=== PATIENT | male | born 1960 | race Hispanic/Latino ===

== ENCOUNTER 2016-11-23 10:35 | Emergency (ER) | payer BC ==
[2016-11-23 10:49] VITALS: BP 122/80
--- OUTSIDE RECORDS SUMMARY | 2016-11-23 11:05 | XMS REPORT | Summary of Care ---
:1960 Author Organization [facility] Address [address] [place] [address] [address] [place] [address] Care Team Providers Name Role Phone Marifer Blancohy [place] Primary Care Physician Encounter Date(s): 09/25/16 - 09/25/16 [facility] [address] [place] [address] [address] [place] [address]- Discharge Diagnosis: Bloating Discharge Diagnosis: Left lower quadrant abdominal tenderness Discharge Diagnosis: Flatulence Discharge Diagnosis: Heartburn Discharge Disposition: 01 Discharged to Home or Self Care Attending Physician: Lior Coronel DO Referring Physician: Lior Coronel DO Vital Signs Most recent to oldest [Reference Range]: 1 Peripheral Pulse Rate [60-100 bpm] 84 bpm (09/25/16 3:39 PM) Blood Pressure [90-130/60-90 mmHg] 126/84mmHg (09/25/16 3:39 PM) Mean Arterial Pressure, Cuff 98 mmHg (09/25/16 3:39 PM) Most recent to oldest [Reference Range]: 1 Height/Length Measured 167 cm (09/25/16 3:39 PM) Weight Dosing 85.0 kg (09/25/16 3:39 PM) Weight Measured 85.0 kg (09/25/16 3:39 PM) BSA Measured 1.94 m2 (09/25/16 3:39 PM) Body Mass Index Measured 30.48 kg/m2 (09/25/16 3:39 PM) Problem List No data available for this section Allergies, Adverse Reactions, Alerts Substance Reaction Severity Status Cipro itching Active penicillin [id number] 19:27:42<$> Active Medications albuterol HFA 2 puff(s), Inhale, QID, PRN as needed for wheezing, 0 Refill(s), Start Date: 06/03 14:58:00 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 Start Date: 03/20/15 Status: Ordereddoxycycline monohydrate 100 mg oral tablet 1 tab(s), Oral, BID, # 28 tab(s), 0 Refill(s), Start Date: 07/22/16 13:55:00 CDT , Pharmacy: [facility] [id number] Start Date: 07/22/16 Stop Date: 08/05/16 Status: Orderedesomeprazole 40 mg oral delayed release capsule 1 cap(s), Oral, Daily, # 30 cap(s), 0 Refill(s), Start Date: 03/20/15 14:57:00 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 Start Date: 03/20/15 Stop Date: 02/04/16 Status: DiscontinuedFlagyl 500 mg oral tablet 1 tab(s), Oral, q8hr interval, # 30 tab(s), 0 Refill(s), Start Date: 09/25/16 16 :00:00 CDT, Pharmacy: [facility] [id number] Start Date: 09/25/16 Status: OrderedJublia 1 cherie, Topical, Daily, 0 Refill(s), Start Date: 08/28/15 12:16:00 CDT Start Date: 08/28/15 Stop Date: 02/04/16 Status: DiscontinuedJublia 10% topical solution 1 cherie, Topical, Daily, # 4 mL, 0 Refill(s), Start Date: 07/22/16 13:29:00 CDT Start Date: 07/22/16 Status: Orderedmultivitamin 1 tab(s), Oral, Daily, 0 Refill(s), Start Date: 08/28/15 12:16:00 CDT Start Date: 08/28/15 Status: OrderedraNITIdine 150 mg oral tablet 1 tab(s), Oral, BID, # 60 tab(s), 0 Refill(s), Start Date: 07/22/16 13:29:00 CDT Start Date: 07/22/16 Status: Orderedsildenafil 100 mg oral tablet 1 tab(s), Oral, Daily, 1 hour before sexual activity, # 6 Tab-Dis, 11 Refill(s) , Start Date: 02/21/16 13:43:00 CDT, Pharmacy: [facility] [id number] Special Instructions: 1 hour before sexual activity Start Date: 02/21/16 Status: OrderedSuprep Bowel Prep Kit oral liquid 1 bottles, Oral, BID, Mix 1 btl to 16oz water and drink. Next morning; repeat use second btl. Complete at least 1 hr before colonscopy., # 1 kit(s), 0 Refill (s), Start Date: 03/20/15 15:19:00 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, Pharmacy: [facility] Special Instructions: Mix 1 btl to 16oz water and drink. Next morning; repeat use second btl. Complete at least 1 hr before colonscopy. Start Date: 03/20/15 Stop Date: 04/28/15 Status: CompletedSuprep Bowel Prep Kit oral liquid See Instructions, 1 bottles Oral BID, # 1 kit(s), 0 Refill(s), Start Date: 06/24 15:34:00 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, Pharmacy: [facility] Special Instructions: 1 bottles Oral BID Start Date: 06/24/16 Stop Date: 08/10/16 Status: CompletedViagra 100 mg oral tablet 1 tab(s), Oral, Daily, PRN for erectile dysfunction, # 2 tab(s), 0 Refill(s), Start Date: 02/21/16 13:41:00 CDT, samples given to patient (Rx), [id number], 05/07 Start Date: 02/21/16 Status: Ordered Results No data available for this section Immunizations No data available for this section Procedures Procedure Date Related Diagnosis Body Site Colonoscopy1 08/10/16 Esophageal Dilation2 08/10/16 Colonoscopy3 08/30/15 Esophagogastroduodenoscopy4 08/30/15 Hernia, inguinal, right Tonsillectomy 1auto-populated from documented surgical [id number] from documented surgical [id number] from documented surgical [id number] from documented surgical case Social History No data available for this section Assessment and Plan No data available for this section
--- OUTSIDE RECORDS SUMMARY | 2016-11-23 11:06 | XMS REPORT | Summary of Care ---
:1960 Author Organization [facility] Care Team Providers Name Role Phone Diana Blanco Primary Care Physician Encounter Date(s): 08/10/16 - 08/10/16 [facility] [address] Discharge Disposition: 01 Discharged to Home or Self Care Attending Physician: Lior Coronel DO Admitting Physician: Lior Coronel DO Vital Signs Most recent to oldest 1 2 3 [Reference Range]: Temperature Temporal Artery 36.3 DegC 36.8 DegC [36-38 DegC] (08/10/16 10:16 AM) (08/10/16 7:19 AM) Heart Rate Monitored [60-100 68 bpm 73 bpm 74 bpm bpm] (08/10/16 10:42 AM) (08/10/16 10:25 AM) (08/10/16 10:20 AM) Respiratory Rate [12-20 16 br/min 20 br/min 18 br/min br/min] (08/10/16 10:42 AM) (08/10/16 10:25 AM) (08/10/16 10:20 AM) SpO2 [90-100 %] 98 % 94 % 97 % (08/10/16 10:42 AM) (08/10/16 10:25 AM) (08/10/16 10:20 AM) SpO2 Location Right hand (08/10/16 7:19 AM) Blood Pressure [90-130/60-90 103/69mmHg 98/71mmHg 86/58mmHg mmHg] (08/10/16 10:42 AM) (08/10/16 10:25 AM) *LOW* (08/10/16 10:20 AM) Mean Arterial Pressure 83 mmHg 83 mmHg 68 mmHg Monitor Measure (08/10/16 10:42 AM) (08/10/16 10:25 AM) (08/10/16 10:20 AM) Most recent to oldest [Reference Range]: 1 2 3 Height/Length Measured 167 cm (08/10/16 7:19 AM) Height/Length Estimated 167.6 cm (08/06/16 2:47 PM) Weight Estimated 83.5 kg (08/06/16 2:47 PM) Weight Dosing 83.6 kg (08/10/16 7:19 AM) Weight Measured 83.6 kg (08/10/16 7:19 AM) Body Mass Index Measured 29.98 kg/m2 (08/10/16 7:19 AM) Problem List No data available for this section Allergies, Adverse Reactions, Alerts Substance Reaction Severity Status Cipro itching Active penicillin [id number] 19:27:42<$> Active Medications albuterol HFA 2 puff(s), Inhale, QID, PRN as needed for wheezing, 0 Refill(s), Start Date: 06/03 14:58:00 REJECTED ITEMS CLERK Start Date: 03/20/15 Status: Ordereddoxycycline monohydrate 100 mg oral tablet 1 tab(s), Oral, BID, # 28 tab(s), 0 Refill(s), Start Date: 07/22/16 13:55:00 CDT , Pharmacy: [facility] [id number] Start Date: 07/22/16 Stop Date: 08/05/16 Status: Orderedesomeprazole 40 mg oral delayed release capsule 1 cap(s), Oral, Daily, # 30 cap(s), 0 Refill(s), Start Date: 03/20/15 14:57:00 REJECTED ITEMS CLERK Start Date: 03/20/15 Stop Date: 02/04/16 Status: DiscontinuedJublia 1 cherie, Topical, Daily, 0 Refill(s), Start [...] , Start Date: 02/21/16 13:43:00 CDT, Pharmacy: [facility] [id number] Special Instructions: 1 hour before sexual activity Start Date: 02/21/16 Status: OrderedSuprep Bowel Prep Kit oral liquid 1 bottles, Oral, BID, Mix 1 btl to 16oz water and drink. Next morning; repeat use second btl. Complete at least 1 hr before colonscopy., # 1 kit(s), 0 Refill (s), Start Date: 03/20/15 15:19:00 REJECTED ITEMS CLERK, Pharmacy: [facility] [id number] Special Instructions: Mix 1 btl to 16oz water and drink. Next morning; repeat use second btl. Complete at least 1 hr before colonscopy. Start Date: 03/20/15 Stop Date: 04/28/15 Status: CompletedSuprep Bowel Prep Kit oral liquid See Instructions, 1 bottles Oral BID, # 1 kit(s), 0 Refill(s), Start Date: 06/24 15:34:00 REJECTED ITEMS CLERK, Pharmacy: [facility] [id number] Special Instructions: 1 bottles Oral BID Start Date: 06/24/16 Stop Date: 08/10/16 Status: CompletedViagra 100 mg oral tablet 1 tab(s), Oral, Daily, PRN for erectile dysfunction, # 2 tab(s), 0 Refill(s), Start Date: 02/21/16 13:41:00 CDT, samples given to patient (Rx), [id number], 05/07 Start Date: 02/21/16 Status: Ordered Results Patient Viewable Results Most recent to oldest 1 2 3 [Reference Range]: AN - Fi O2 20 % % 21 % % 21 % % (08/10/16 10:15 AM) (08/10/16 10:10 AM) (08/10/16 10:05 AM) Immunizations No data available for this section Procedures Procedure Date Related Diagnosis Body Site Colonoscopy1 08/10/16 Esophageal Dilation2 08/10/16 Colonoscopy3 08/30/15 Esophagogastroduodenoscopy4 08/30/15 Hernia, inguinal, right Tonsillectomy 1auto-populated from documented surgical [id number] from documented surgical [id number] from documented surgical [id number] from documented surgical case Social History No data available for this section Assessment and Plan No data available for this section
--- OUTSIDE RECORDS SUMMARY | 2016-11-23 11:06 | XMS REPORT | Summary of Care ---
:1960 Author Organization [facility] Address [address] [place] [address] Care Team Providers Name Role Phone Diana Blanco [place] Primary Care Physician Encounter Date(s): 10/13/16 - 10/13/16 [facility], [address] [place], [place] [address] Discharge Diagnosis: Left inguinal hernia Discharge Disposition: 01 Discharged to Home or Self Care Attending Physician: Lonny Rousseau MD Referring Physician: Lonny Rousseau MD Vital Signs Most recent to oldest [Reference Range]: 1 Blood Pressure [90-130/60-90 mmHg] 130/80mmHg (10/13/16 3:52 PM) Mean Arterial Pressure, Cuff 97 mmHg (10/13/16 3:52 PM) Most recent to oldest [Reference Range]: 1 Height/Length Measured 167 cm (10/13/16 3:52 PM) Weight Dosing 84.40 kg1 (10/13/16 3:57 PM) Weight Measured 84.4 kg (10/13/16 3:52 PM) BSA Measured 1.93 m2 (10/13/16 3:52 PM) Body Mass Index Measured 30.26 kg/m2 (10/13/16 3:52 PM) 1Result Comment: This result was because the dosing weight was either not entered or it is>30 days old. 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 Start Date: 03/20/15 Status: Ordereddoxycycline monohydrate 100 mg oral tablet 1 tab(s), Oral, BID, # 28 tab(s), 0 Refill(s), Start Date: 07/22/16 13:55:00 CDT , Pharmacy: [facility] [id number] Start Date: 07/22/16 Stop Date: 10/13/16 Status: Completedesomeprazole 40 mg oral delayed release capsule 1 cap(s), Oral, Daily, # 30 cap(s), 0 Refill(s), Start Date: 03/20/15 14:57:00 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 MILL 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 Start Date: 03/20/15 Stop Date: 02/04/16 Status: DiscontinuedFlagyl 500 mg oral tablet 1 tab(s), Oral, q8hr interval, # 30 tab(s), 0 Refill(s), Start Date: 09/25/16 16 :00:00 CDT, Pharmacy: [id number] Start Date: 09/25/16 Status: OrderedJublia 1 cherie, Topical, Daily, 0 Refill(s), Start Date: 08/28/15 12:16:00 CDT Start Date: 08/28/15 Stop Date: 02/04/16 Status: DiscontinuedJublia 10% topical solution 1 cherie, Topical, Daily, # 4 mL, 0 Refill(s), Start Date: 07/22/16 13:29:00 CDT Start Date: 07/22/16 Stop Date: 10/13/16 Status: Discontinuedmultivitamin 1 tab(s), Oral, Daily, 0 Refill(s), Start Date: 08/28/15 12:16:00 CDT Start Date: 08/28/15 Stop Date: 10/13/16 Status: DiscontinuedraNITIdine 150 mg oral tablet 1 tab(s), Oral, BID, # 60 tab(s), 0 Refill(s), Start Date: 07/22/16 13:29:00 CDT Start Date: 07/22/16 Stop Date: 10/13/16 Status: Discontinuedsildenafil 100 mg oral tablet 1 tab(s), Oral, Daily, 1 hour before sexual activity, # 6 Tab-Dis, 11 Refill(s) , Start Date: 02/21/16 13:43:00 CDT, Pharmacy: [facility] [id number] Special Instructions: 1 hour before sexual activity Start Date: 02/21/16 Stop Date: 10/13/16 Status: DiscontinuedSuprep Bowel Prep Kit oral liquid 1 bottles, Oral, BID, Mix 1 btl to 16oz water and drink. Next morning; repeat use second btl. 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 Next morning; repeat use second btl. Complete at least 1 hr before colonscopy. 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, Pharmacy: [id number] Special Instructions: 1 bottles Oral BID Start Date: 06/24/16 Stop Date: 08/10/16 Status: CompletedViagra 100 mg oral tablet 1 tab(s), Oral, Daily, PRN for erectile dysfunction, # 2 tab(s), 0 Refill(s), Start Date: 02/21/16 13:41:00 CDT, samples given to patient (Rx), [id number], 05/07 Start Date: 02/21/16 Status: Ordered Results No data available for this section Immunizations No data available for this section Procedures Procedure Date Related Diagnosis Body Site Colonoscopy1 08/10/16 Esophageal Dilation2 08/10/16 Colonoscopy3 08/30/15 Esophagogastroduodenoscopy4 08/30/15 Hernia, inguinal, right Tonsillectomy 1auto-populated from documented surgical [id number] from documented surgical [id number] from documented surgical [id number] from documented surgical case Social History No data available for this section Assessment and Plan No data available for this section
--- OUTSIDE RECORDS SUMMARY | 2016-11-23 11:06 | XMS REPORT | Summary of Care ---
:1960 Author Organization [facility] Address [address] [place] [address] Care Team Providers Name Role Phone Diana Blanco Primary Care Physician Encounter Date(s): 07/22/16 - 07/22/16 [facility], [address] [place], [place] [address] Discharge Diagnosis: Screening PSA (prostate specific antigen) Discharge Diagnosis: Epididymitis, right Discharge Disposition: 01 Discharged to Home or Self Care Attending Physician: Tanner Best MD Referring Physician: Tanner Best MD Vital Signs Most recent to oldest [Reference Range]: 1 Temperature Temporal Artery [36.0-38.0 DegC] 36.3 DegC (07/22/16 1:25 PM) Peripheral Pulse Rate [60-100 bpm] 81 bpm (07/22/16 1:25 PM) Blood Pressure [90-130/60-90 mmHg] 133/83mmHg *HI* (07/22/16 1:25 PM) Mean Arterial Pressure, Cuff 100 mmHg (07/22/16 1:25 PM) Most recent to oldest [Reference Range]: 1 Weight Dosing 86.2 kg (07/22/16 1:25 PM) Weight Measured 86.2 kg (07/22/16 1:25 PM) Problem List No data available for this section Allergies, Adverse Reactions, Alerts Substance Reaction Severity Status Cipro itching Active penicillin [id number] 19:27:42<$> Active Medications albuterol HFA puff(s), Inhale, QID, 0 Refill(s), Start Date: 03/20/15 14:58:00 NIGHT NURSE Start Date: 03/20/15 Status: Ordereddoxycycline monohydrate 100 mg oral tablet 1 tab(s), Oral, BID, # 28 tab(s), 0 Refill(s), Start Date: 07/22/16 13:55:00 CDT , Pharmacy: [facility] [id number] Start Date: 07/22/16 Stop Date: 08/05/16 Status: Orderedesomeprazole 40 mg oral delayed release capsule 1 cap(s), Oral, Daily, # 30 cap(s), 0 Refill(s), Start Date: 03/20/15 14:57:00 NIGHT NURSE Start Date: 03/20/15 Stop Date: 02/04/16 Status: [...] , Start Date: 02/21/16 13:43:00 CDT, Pharmacy: [facility] [id number] Special Instructions: 1 hour before sexual activity Start Date: 02/21/16 Status: OrderedSuprep Bowel Prep Kit oral liquid 1 bottles, Oral, BID, Mix 1 btl to 16oz water and drink. Next morning; repeat use second btl. Complete at least 1 hr before colonscopy., # 1 kit(s), 0 Refill (s), Start Date: 03/20/15 15:19:00 NIGHT NURSE, Pharmacy: [facility] [id number] Special Instructions: Mix 1 btl to 16oz water and drink. Next morning; repeat use second btl. Complete at least 1 hr before colonscopy. Start Date: 03/20/15 Stop Date: 04/28/15 Status: CompletedSuprep Bowel Prep Kit oral liquid See Instructions, 1 bottles Oral BID, # 1 kit(s), 0 Refill(s), Start Date: 06/24 15:34:00 NIGHT NURSE, Pharmacy: [facility] [id number] Special Instructions: 1 bottles Oral BID Start Date: 06/24/16 Stop Date: 08/10/16 Status: OrderedViagra 100 mg oral tablet 1 tab(s), Oral, Daily, PRN for erectile dysfunction, # 2 tab(s), 0 Refill(s), Start Date: 02/21/16 13:41:00 CDT, samples given to patient (Rx), [id number], 05/07 Start Date: 02/21/16 Status: Ordered Results Patient Viewable Results Most recent to oldest [Reference Range]: 1 Urine Appearance Urine Dipstick Clear (07/22/16 1:47 PM) Urine Color Urine Dipstick Yellow (07/22/16 1:47 PM) Specific [place] Urine Dipstick 1.010 (07/22/16 1:47 PM) Bilirubin Urine Dipstick Negative (07/22/16 1:47 PM) pH Urine Dipstick 6.5 (07/22/16 1:47 PM) Urobilinogen Urine Dipstick 0.2 mg/dl (07/22/16 1:47 PM) Blood Urine Dipstick Negative (07/22/16 1:47 PM) Glucose Urine Dipstick Negative (07/22/16 1:47 PM) Ketones Urine Dipstick Negative (07/22/16 1:47 PM) Protein Urine Dipstick Negative (07/22/16 1:47 PM) Nitrite Urine Dipstick Negative (07/22/16 1:47 PM) Leukocytes Urine Dipstick Negative (07/22/16 1:47 PM) Immunizations No data available for this section Procedures Procedure Date Related Diagnosis Body Site Colonoscopy1 08/30/15 Esophagogastroduodenoscopy2 5/13/16 Hernia, inguinal, right Tonsillectomy 1auto-populated from documented surgical [id number] from documented surgical case Social History No data available for this section Assessment and Plan No data available for this section
--- OUTSIDE RECORDS SUMMARY | 2016-11-23 11:06 | XMS REPORT | Summary of Care ---
:1960 Author Organization [facility] Address [address] [place] [address] [address] [place] [address] Care Team Providers Name Role Phone Diana Blanco Primary Care Physician Encounter Date(s): 06/24/16 - 06/24/16 [facility] [address] [place] [address] [address] [place] [address]- Discharge Disposition: 01 Discharged to Home or Self Care Attending Physician: AIDE Soto Referring Physician: AIDE Soto Vital Signs Most recent to oldest [Reference Range]: 1 Peripheral Pulse Rate [60-100 bpm] 85 bpm (06/24/16 3:04 PM) Blood Pressure [90-130/60-90 mmHg] 115/78mmHg (06/24/16 3:04 PM) Mean Arterial Pressure, Cuff 90 mmHg (06/24/16 3:04 PM) Most recent to oldest [Reference Range]: 1 Height/Length Measured 167 cm (06/24/16 3:04 PM) Height/Length Estimated 167 cm (06/24/16 3:04 PM) Weight Estimated 86.0 kg (06/24/16 3:04 PM) Weight Dosing 86.0 kg (06/24/16 3:04 PM) Weight Measured 86.0 kg (06/24/16 3:04 PM) BSA Measured 1.95 m2 (06/24/16 3:04 PM) BSA Estimated 2 m2 (06/24/16 3:04 PM) Body Mass Index Measured 30.84 kg/m2 (06/24/16 3:04 PM) Body Mass Index Estimated 30.84 kg/m2 (06/24/16 3:04 PM) Problem List No data available for this section Allergies, Adverse Reactions, Alerts Substance Reaction Severity Status Cipro itching Active penicillin [id number] 19:27:42<$> Active Medications albuterol HFA puff(s), Inhale, QID, 0 Refill(s), Start Date: 03/20/15 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 Start Date: 03/20/15 Status: Orderedesomeprazole 40 mg oral delayed release capsule 1 cap(s), Oral, Daily, # 30 cap(s), 0 Refill(s), Start Date: 03/20/15 14:57:00 AIRPLANE COVERER Start Date: 03/20/15 Stop Date: 02/04/16 Status: DiscontinuedJublia 1 cherie, Topical, Daily, 0 Refill(s), Start Date: 08/28/15 12:16:00 CDT Start Date: 08/28/15 Stop Date: 02/04/16 Status: Discontinuedmultivitamin 1 tab(s), Oral, Daily, 0 Refill(s), Start Date: 08/28/15 12:16:00 CDT Start Date: 08/28/15 Status: Orderedsildenafil 100 mg oral tablet 1 tab(s), Oral, Daily, 1 hour before sexual activity, # 6 Tab-Dis, 11 Refill(s) , Start Date: 02/21/16 13:43:00 CDT, Pharmacy: [id number] Special Instructions: 1 hour before sexual activity Start Date: 02/21/16 Status: OrderedSuprep Bowel Prep Kit oral liquid 1 bottles, Oral, BID, Mix 1 btl to 16oz water and drink. Next morning; repeat use second btl. Complete at least 1 hr before colonscopy., # 1 kit(s), 0 Refill (s), Start Date: 03/20/15 15:19:00 AIRPLANE COVERER, Pharmacy: [facility] [id number] Special Instructions: Mix 1 btl to 16oz water and drink. Next morning; repeat use second btl. Complete at least 1 hr before colonscopy. Start Date: 03/20/15 Stop Date: 04/28/15 Status: CompletedSuprep Bowel Prep Kit oral liquid See Instructions, 1 bottles Oral BID, # 1 kit(s), 0 Refill(s), Start Date: 06/24 15:34:00 AIRPLANE COVERER, Pharmacy: [facility] [id number] Special Instructions: 1 bottles Oral BID Start Date: 06/24/16 Stop Date: 08/10/16 Status: OrderedViagra 100 mg oral tablet 1 tab(s), Oral, Daily, PRN for erectile dysfunction, # 2 tab(s), 0 Refill(s), Start Date: 02/21/16 13:41:00 CDT, samples given to patient (Rx), [id number], 05/07 Start Date: 02/21/16 Status: Ordered Results No data available for this section Immunizations No data available for this section Procedures Procedure Date Related Diagnosis Body Site Colonoscopy1 08/30/15 Esophagogastroduodenoscopy2 08/30/15 Hernia, inguinal, right Tonsillectomy 1auto-populated from documented surgical [id number] from documented surgical case Social History No data available for this section Assessment and Plan No data available for this section
--- NOTE | 2016-11-23 11:14 | ERNOTE ---
Chest Pain/Cardiac HPI Chief Complaint: Palpitations Time Seen by Provider: 11/23/16 11:00 Source: patient Exam Limitations: no limitations Immunizations: IMMUNIZATION HX Immunizations Up to Date Yes History of Influenza Vaccine Yes Hx Pneumococcal Vaccination Yes Allergies/Adverse Reactions: Allergies cephalexin [Cephalexin] Allergy (Mild, Verified 11/23/16 10:49) rash Penicillins Allergy (Mild, Verified 11/23/16 10:49) Nausea Home Medications: HOME MEDICATIONS Albuterol Sulfate [Proair Hfa] 90 mcg IH Q4H PRN 03/23/12 [Last Taken 03/04/13] Narrative: This is a 56-year-old male who presents to our emergency room for an episode of palpitations he felt yesterday. Patient has no palpitations now, he denies any cardiac symptoms such as chest pain shortness of breath diaphoresis yesterday or today. He only had a sensation of palpitations yesterday which was self-limiting. Patient has seen Dr. Blanco in the past this is approximately 2 years ago and reported the same symptoms. He denies any chest pain shortness of breath cough congestion diaphoresis or any sensation of syncope or near syncopal sensations. Review of Systems - Review of Systems Constitutional: Present: no symptoms reported EYE: Present: no symptoms reported ENT: Present: no symptoms reported Respiratory: Present: no symptoms reported Cardiology: Present: See HPI Gastrointestinal/Abdominal: Present: no symptoms reported Genitourinary: Present: no symptoms reported Musculoskeletal: Present: no symptoms reported Skin: Present: no symptoms reported - Patient's Past Medical History Patient History - Medical: No pertinent hx Patient History - Cardiac/Respiratory: Asthma Patient History - Cancer: No Hx of Cancer Patient History - Surgical Procedures: T & A, Other Patient History - Other: None - Social History Living Situations: home Abuse History: No History of abuse Psych History: Hx of Anxiety, Hx of Depression Smoking Status: Never smoker Alcohol Use: none Drug Use: none - Immunizations Immunizations Up to Date: Yes Hx Pneumococcal Vaccination: Yes History of Influenza Vaccine: Yes Physical Exam - Physical Exam General Appearance: Present: wd/wn, alert, no apparent distress Head Exam: Present: normal inspection, no evidence of injury Eye Exam: Normal inspection: bilateral, PERRL: bilateral, EOMI: bilateral Ears, Nose, Throat: Present: normal ENT inspection, normal pharynx Neck: Present: normal inspection, nontender Respiratory: Present: no respiratory distress, normal breath sounds, no accessory muscle use, chest nontender, lungs clear Cardiovascular/Chest: Present: regular rate, rhythm, no murmur, normal peripheral pulses, other - patient has been monitored on the monitoring engineer while in the ER and this examiner does not appreciate an irregular rhythm he has normal sinus rhythm without any ST or T changes he is completely asymptomatic at this time. ED Progress - Vital Signs Patient's Vital Signs:: I have reviewed the patient's vital signs. Vital Signs: Vital Signs 11/23/16 10:43 Temperature 36.6 C Pulse Rate 95 Respiratory 16 Rate Blood Pressure 122/80 O2 Sat by Pulse 95 Oximetry - EKG EKG: NSR - Progress/Reassessment Chief Complaint: Palpitations Plan - Plan Plan: This is a 56-year-old, male with a previous history of episodic palpitations. I am being informed here in the ER by our mid-level provider provider that 24-hour monitor/Holter monitor is not customarily possible in this ER and therefore this examiner chose to contact Dr. Diana Blanco who will gladly see the patient and her office this week for palpitations, history of palpitations none observed. At this time the patient has remained completely cardiovascularly and vitally stable in our emergency room in my opinion he is stable and appropriate to be discharged to follow up with Dr. Blanco sometime this week for a Holter monitor. Patient will be instructed to do so. Departure - Departure Clinical Impression: History of palpitations Disposition: Home self-care Condition: Good Instructions: Holter Monitoring Additional Instructions: Please go see Dr. Blanco this week for history of palpitations. Please return to the ER in case of severe chest pains Referrals: Diana Blanco MD [Primary Care Provider] -
== END 2016-11-23 11:15 | disposition home or self-care (01) ==
LOC: ER 10:35
DX: R00.2 Palpitations (principal)